=== PATIENT | female | born 1990 | race Caucasian/White ===

== ENCOUNTER 2018-04-28 17:17 | Emergency (ER) | payer SELFPAY ==
[2018-04-28] MEDS ORDERED: Sodium Chloride 0.9% 1,000 ML IV ONE (18:37)
--- NOTE | 2018-04-28 18:40 | EDM.PDOC ---
ED HPI GENERAL MEDICAL PROBLEM - General Chief Complaint: General Stated Complaint: LIGHT HEADED Time Seen by Provider: 04/28/18 18:33 Source of Information: Reports: Patient History Limitations: Reports: No Limitations - History of Present Illness INITIAL COMMENTS - FREE TEXT/NARRATIVE: HISTORY AND PHYSICAL: History of present illness: Patient is a 27-year-old female who presents to the ED today with concerns of dizziness, lightheaded, headaches, palpitations, and right leg swelling. Patient states she is about 13 weeks and follows with an OB in [place]. She states that her symptoms started 2 days ago and are progressively getting worse. She states that the right leg swelling has happened about a week ago and that she has not had any trauma to her leg. Patient states she has had to receive 2 shots of program due to spotting in this but that she does not have any vaginal bleeding or cramping today. Patient denies fever, chills, sinus or throat pain, cough, difficulties breathing, shortness of breath, pain with inspiration, chest pain, or any other respiratory or cardiovascular concerns. Patient denies all other GI or symptoms. Patient denies any health history. Review of systems: As per history of present illness and below otherwise all systems reviewed and negative. Past medical history: As per history of present illness and as reviewed below otherwise noncontributory. Surgical history: As per history of present illness and as reviewed below otherwise noncontributory. Social history: See social history for further information Family history: As per history of present illness and as reviewed below otherwise noncontributory. Physical exam: General: Well-developed and well-nourished 27-year-old female. Alert and oriented. Nontoxic appearing and in no acute distress. HEENT: Atraumatic, normocephalic, pupils equal and reactive bilaterally, negative for conjunctival pallor or scleral icterus, mucous membranes moist, TMs normal bilaterally, throat clear, neck supple, nontender, trachea midline. No drooling or trismus noted. No meningeal signs. No hot potato voice noted. Lungs: Clear to auscultation, breath sounds equal bilaterally, chest nontender. Heart: S1S2, regular rate and rhythm without overt murmur Abdomen: Overweight, soft, nondistended, nontender. Negative for masses or hepatosplenomegaly. Negative for costovertebral tenderness. Pelvis: Stable nontender. Genitourinary: Deferred. Rectal: Deferred. Skin: Intact, warm, dry. No lesions or rashes noted. Extremities: On right medial ankle is some bruising discoloration that is moderate to palpation. Dorsalis pedis and posterior tibial pulses are grossly intact. Negative Homans sign. Otherwise, atraumatic, negative for cords or calf pain. Neurovascular unremarkable. Neuro: Awake, alert, oriented. Cranial nerves II through XII unremarkable. Cerebellum unremarkable. Motor and sensory unremarkable throughout. Exam nonfocal. Notes: Patient does have slight elevation in her liver function tests as well as ketonuria. However ultrasound of the leg shows no sonographic evidence of deep venous thrombosis. OB ultrasound shows a viable intrauterine 12 week 5 day gestation, heart rate 163/minute. No subchorionic hemorrhage identified. Orthostatic vitals today are reassuring. Patient is requesting Tylenol and states she does not have an allergy to acetaminophen. She states that this is an allergy due to the compound to the hydrocodone. Diagnostics: CBC, CMP, TSH, UA, EKG, orthostatic vitals, urine hcg Therapeutics: Normal saline, Tylenol Prescription: None Impression: 1. Leg pain, right unspecified 2. First Trimester Plan: 1. You can use Tylenol as needed for pain or discomfort. This medication is safe in . 2. Follow up with your OBGYN or primary care in the next 1-2 days. Estimated at 12 week 5 days. 3. Return to the ED as needed and as discussed. Definitive disposition and diagnosis as appropriate pending reevaluation and review of above. Right Foot Pain Score (Numeric/FACES): 8 - Related Data Allergies Allergy/AdvReac Type Severity Reaction Status Date / Time acetaminophen [From Vicodin] Allergy Vomiting Verified 04/28/18 18:13 hydrocodone [From Vicodin] Allergy Vomiting Verified 04/28/18 18:13 Home Meds: Home Meds Ondansetron [Zofran ODT] 4 mg PO ASDIRECTED 04/28/18 [History] Vit37/Iron/Folic Acid [Prenata] 1 mg PO DAILY 04/28/18 [History] Rho(D) Immune Globulin [Rhogam Ultra-Filtered Plus] 1 units IM 04/28/18 [History ] Past Medical History HEENT History: Reports: None Cardiovascular History: Reports: None Respiratory History: Reports: None Gastrointestinal History: Reports: None YARD ASSOCIATE History: Reports: Endometriosis, Polycystic Ovaries Other YARD ASSOCIATE History: abnormal bleeding with PG gets Rohgam every 6 to 12 weeks. Musculoskeletal History: Reports: None Neurological History: Reports: None Psychiatric History: Reports: None Endocrine/Metabolic History: Reports: None Hematologic History: Reports: None Immunologic History: Reports: None Oncologic (Cancer) History: Reports: None Dermatologic History: Reports: None - Infectious Disease History Infectious Disease History: Reports: None - Past Surgical History Head Surgeries/Procedures: Reports: None Female Surgical History: Reports: None Social & Family History - Tobacco Use Smoking Status *Q: Never Smoker Second Hand Smoke Exposure: No - Caffeine Use Caffeine Use: Reports: None - Recreational Drug Use Recreational Drug Use: No ED ROS GENERAL - Review of Systems Review Of Systems: ROS reveals no pertinent complaints other than HPI. ED EXAM, GENERAL - Physical Exam Exam: See Below (see dictation) Course - Vital Signs Last Recorded V/S: Last Vital Signs Temp 98.2 F 04/28/18 18:09 Pulse 88 04/28/18 18:09 Resp 20 04/28/18 18:09 BP 128/78 04/28/18 18:09 Pulse Ox 96 04/28/18 18:09 - Orders/Labs/Meds Orders: Active Orders 24 hr Category Date Time Status EKG Documentation Completion [RC] STAT Care 04/28/18 18:34 Active Orthostatic Vital Signs [RC] ASDIRECTED Care 04/28/18 18:44 Active Labs: Laboratory Tests 04/28/18 04/28/18 04/28/18 Range/Units 18:30 18:30 19:03 WBC 9.57 (4.0-11.0) K/uL RBC 4.41 (4.30-5.90) M/uL Hgb 13.8 (12.0-16.0) g/dL Hct 38.6 (36.0-46.0) % MCV 87.5 (80.0-98.0) fL MCH 31.3 (27.0-32.0) pg MCHC 35.8 (31.0-37.0) g/dL RDW Std Deviation 42.1 (28.0-62.0) fl RDW Coeff of Efrain 13 (11.0-15.0) % Plt Count 194 (150-400) K/uL MPV 9.80 (7.40-12.00) fL Neut % (Auto) 68.9 (48.0-80.0) % Lymph % (Auto) 23.9 (16.0-40.0) % [place] % (Auto) 6.4 (0.0-15.0) % Eos % (Auto) 0.7 (0.0-7.0) % Baso % (Auto) 0.1 (0.0-1.5) % Neut # (Auto) 6.6 H (1.4-5.7) K/uL Lymph # (Auto) 2.3 (0.6-2.4) K/uL [place] # (Auto) 0.6 (0.0-0.8) K/uL Eos # (Auto) 0.1 (0.0-0.7) K/uL Baso # (Auto) 0.0 (0.0-0.1) K/uL Nucleated RBC % 0.0 /100WBC Nucleated RBCs # 0 K/uL Sodium (136-145) mmol/L Potassium (3.5-5.1) mmol/L Chloride (98-107) mmol/L Carbon Dioxide (21.0-32.0) mmol/L BUN (7.0-18.0) mg/dL Creatinine (0.6-1.0) mg/dL Est Cr Clr Drug Dosing mL/min Estimated GFR (MDRD) ml/min Glucose (74-106) mg/dL Calcium (8.5-10.1) mg/dL Total Bilirubin (0.2-1.0) mg/dL AST (15-37) IU/L ALT (14-63) IU/L Alkaline Phosphatase (46-116) U/L Total Protein (6.4-8.2) g/dL Albumin (3.4-5.0) g/dL Globulin (2.6-4.0) g/dL Albumin/Globulin Ratio (0.9-1.6) TSH 3rd Generation (0.36-3.74) uIU/mL HCG, Quant mIU/mL Urine Color YELLOW Urine Appearance CLEAR Urine pH 6.0 (5.0-8.0) Ur Specific [place] 1.015 (1.001-1.035) Urine Protein NEGATIVE (NEGATIVE) mg/dL Urine Glucose (UA) NEGATIVE (NEGATIVE) mg/dL Urine Ketones 15 H (NEGATIVE) mg/dL Urine Occult Blood NEGATIVE (NEGATIVE) Urine Nitrite NEGATIVE (NEGATIVE) Urine Bilirubin NEGATIVE (NEGATIVE) Urine Urobilinogen 0.2 (<2.0) EU/dL Ur Leukocyte Esterase NEGATIVE (NEGATIVE) Urine HCG, Qual POSITIVE (NEGATIVE) 04/28/18 04/28/18 Range/Units 19:03 19:03 WBC (4.0-11.0) K/uL RBC (4.30-5.90) M/uL Hgb (12.0-16.0) g/dL Hct (36.0-46.0) % MCV (80.0-98.0) fL MCH (27.0-32.0) pg MCHC (31.0-37.0) g/dL RDW Std Deviation (28.0-62.0) fl RDW Coeff of Efrain (11.0-15.0) % Plt Count (150-400) K/uL MPV (7.40-12.00) fL Neut % (Auto) (48.0-80.0) % Lymph % (Auto) (16.0-40.0) % [place] % (Auto) (0.0-15.0) % Eos % (Auto) (0.0-7.0) % Baso % (Auto) (0.0-1.5) % Neut # (Auto) (1.4-5.7) K/uL Lymph # (Auto) (0.6-2.4) K/uL [place] # (Auto) (0.0-0.8) K/uL Eos # (Auto) (0.0-0.7) K/uL Baso # (Auto) (0.0-0.1) K/uL Nucleated RBC % /100WBC Nucleated RBCs # K/uL Sodium 138 (136-145) mmol/L Potassium 3.7 (3.5-5.1) mmol/L Chloride 104 (98-107) mmol/L Carbon Dioxide 22.8 (21.0-32.0) mmol/L BUN 5 L (7.0-18.0) mg/dL Creatinine 0.6 (0.6-1.0) mg/dL Est Cr Clr Drug Dosing 127.85 mL/min Estimated GFR (MDRD) > 60.0 ml/min Glucose 81 (74-106) mg/dL Calcium 9.4 (8.5-10.1) mg/dL Total Bilirubin 0.5 (0.2-1.0) mg/dL AST 39 H (15-37) IU/L ALT 79 H (14-63) IU/L Alkaline Phosphatase 64 (46-116) U/L Total Protein 7.0 (6.4-8.2) g/dL Albumin 3.2 L (3.4-5.0) g/dL Globulin 3.8 (2.6-4.0) g/dL Albumin/Globulin Ratio 0.8 L (0.9-1.6) TSH 3rd Generation 1.95 (0.36-3.74) uIU/mL HCG, Quant 03660.0 mIU/mL Urine Color Urine Appearance Urine pH (5.0-8.0) Ur Specific [place] (1.001-1.035) Urine Protein (NEGATIVE) mg/dL Urine Glucose (UA) (NEGATIVE) mg/dL Urine Ketones (NEGATIVE) mg/dL Urine Occult Blood (NEGATIVE) Urine Nitrite (NEGATIVE) Urine Bilirubin (NEGATIVE) Urine Urobilinogen (<2.0) EU/dL Ur Leukocyte Esterase (NEGATIVE) Urine HCG, Qual (NEGATIVE) Meds: Medications Discontinued Medications Generic Name Dose Route Start Last Admin Trade Name Freq PRN Reason Stop Dose Admin Acetaminophen 1,000 mg 04/28/18 20:39 Tylenol Extra Strength PO 04/28/18 20:40 ONETIME ONE Sodium Chloride 1,000 mls @ 999 mls/hr 04/28/18 18:37 04/28/18 19:06 Normal Saline IV 04/28/18 19:37 999 mls/hr STAT ONE Administration Departure - Departure Time of Disposition: 20:52 Disposition: Home, Self-Care 01 Clinical Impression: First trimester , Leg pain, right - Discharge Information Instructions: First Trimester of , [id number] Referrals: PCP,None [Primary Care Provider] - Forms: ED Department Discharge Additional Instructions: The following information is given to patients seen in the emergency department who are being discharged to home. This information is to outline your options for follow-up care. We provide all patients seen in our emergency department with a follow-up referral. The need for follow-up, as well as the timing and circumstances, are variable depending upon the specifics of your emergency department visit. If you don't have a primary care physician on staff, we will provide you with a referral. We always advise you to contact your personal physician following an emergency department visit to inform them of the circumstance of the visit and for follow-up with them and/or the need for any referrals to a consulting specialist. The emergency department will also refer you to a specialist when appropriate. This referral assures that you have the opportunity for follow-up care with a specialist. All of these measure are taken in an effort to provide you with optimal care, which includes your follow-up. Under all circumstances we always encourage you to contact your private physician who remains a resource for coordinating your care. When calling for follow-up care, please make the office aware that this follow-up is from your recent emergency room visit. If for any reason you are refused follow-up, please contact the [facility] Emergency Department at and asked to speak to the emergency department charge nurse. [facility] [address] [place] [address] [place] [address] 1. You can use Tylenol as needed for pain or discomfort. This medication is safe in . 2. Follow up with your OBGYN or primary care in the next 1-2 days. Estimated at 12 week 5 days. 3. Return to the ED as needed and as discussed. - My Orders Last 24 Hours: My Active Orders 04/28/18 18:34 EKG Documentation Completion [RC] STAT 04/28/18 18:44 Orthostatic Vital Signs [RC] ASDIRECTED - Assessment/Plan Last 24 Hours: My Active Orders 04/28/18 18:34 EKG Documentation Completion [RC] STAT 04/28/18 18:44 Orthostatic Vital Signs [RC] ASDIRECTED
[2018-04-28 20:04] LABS: CHLORIDE,CL 104 mmol/L (98-107); SODIUM,NA 138 mmol/L (136-145)
--- NOTE | 2018-04-28 20:32 | US ---
INDICATION: Right lower extremity swelling TECHNIQUE: Ultrasound venous duplex right lower extremity. Chawla-scale, color Doppler, and spectral Doppler imaging were performed with compression and augmentation. COMPARISON: None FINDINGS: Deep veins: The right femoral, common femoral, popliteal, and visualized calf veins are fully compressible, demonstrate normal color flow, and normal response to mechanical augmentation. The Duplex Doppler waveforms are normal in appearance. The visualized contralateral left common femoral vein is patent. Superficial veins: The visualized greater saphenous and superficial veins of the leg and calf are unremarkable. Soft tissue: No masses or cysts are identified. No adenopathy is seen. IMPRESSION: 1. No sonographic evidence of deep venous thrombosis seen. Dictated by: Pedro Hawk MD @ 04/28/2018 20:30:53 (Electronically Signed)
[2018-04-28] MEDS ORDERED: Acetaminophen 500 MG Tab PO ONE (20:39)
--- NOTE | 2018-04-28 20:48 | US ---
INDICATION: Dizziness. Evaluate viability of . FINDINGS: Transabdominal imaging. Single intrauterine with crown-rump length of 6.05 cm yielding estimated gestational age 12 weeks 4 days. M-mode heart rate 163 beats per minute. No subchorionic hemorrhage identified. IMPRESSION: Viable intrauterine 12 week 5 day gestation. Estimated date of delivery 05 November 2018. Dictated by Rasta Rivera MD @ Apr 28 2018 8:45PM Signed by Dr. Rasta Rivera @ Apr 28 2018 8:46PM
== END 2018-04-28 21:35 | disposition home or self-care (01) ==
LOC: MW.ED 17:17
DX: O99.89 Other specified diseases and conditions complicating pregnancy, childbirth and the puerperium (principal); M79.81 Nontraumatic hematoma of soft tissue; R00.2 Palpitations; R42 Dizziness and giddiness; Z3A.13 13 weeks gestation of pregnancy; Z88.6 Allergy status to analgesic agent; Z79.899 Other long term (current) drug therapy
CPT/HCPCS: 76801; 80053; 81003; 81025; 84443; 84702; 85025; 93005; 93971; 96360; 96361; 99284; A9270; J7040; 99283